=== PATIENT | female | born 1945 ===

== ENCOUNTER → 2016-08-02 | Outpatient (CLI) | payer MEDICARE, OTHER | END | disposition disaster alternative care site (69) | LOC: GRAD 13:40 | DX: R10.12 Left upper quadrant pain (principal); K76.0 Fatty (change of) liver, not elsewhere classified; K57.30 Diverticulosis of large intestine without perforation or abscess without bleeding; J84.10 Pulmonary fibrosis, unspecified; I70.90 Unspecified atherosclerosis | CPT/HCPCS: Q9967 ==

== ENCOUNTER → 2016-09-06 | Outpatient (CLI) | payer MEDICARE, OTHER | LOC: LFPA 16:38 | DX: R07.89 Other chest pain (principal) ==

== ENCOUNTER 2016-09-21 01:09 | Emergency (ER) | payer MEDICARE, OTHER ==
--- NOTE | ~2016-09-21 | ER ---
[facility] A[facility] 71 [facility] [address] ROOM: [place] [address] LOCATION: [facility] ADMIT DATE: 09/21/2016 ER/Outpatient Report DISCHARGE DATE: 09/21/2016 FAMILY PHYSICIAN: Andie Alanis MD ATTENDING PHYSICIAN: Tad Quintana Time of Arrival: 0111 hours. Time of Evaluation: 0111 hours. CHIEF COMPLAINT: Abdominal pain. HISTORY OF PRESENT ILLNESS: The patient is a 71-year-old female who presents to the emergency department today with a chief complaint of abdominal pain. She points to her left flank. She reports that it started this evening few hours. She denies any fevers or chills. She does have a long history of urinary tract infection. She denies any nausea or vomiting. No diarrhea or constipation. It is a sharp-type pain that radiates into her left lower quadrant. PAST MEDICAL HISTORY: Insulin-dependent diabetes, hypertension, coronary artery disease, dyslipidemia, gastroesophageal reflux disease, exogenous obesity, and diverticulosis. PAST SURGICAL HISTORY: Right total knee, bilateral knee arthroscopy, cholecystectomy, appendectomy, hysterectomy, and cardiac cath. SOCIAL HISTORY: The patient denies any tobacco, alcohol, or illicit drug use. ALLERGIES: TO PENICILLIN, ERYTHROMYCIN, MACROLIDES AND KETOLIDES. MEDICATIONS: Please see list. REVIEW OF SYSTEMS: All systems are reviewed by myself and are negative with the exception of those discussed in the HPI and past medical history. PHYSICAL EXAMINATION: VITAL SIGNS: Weight 93.5 kg. Blood pressure 182/86, pulse 87, respiratory rate 18, temperature 98.3, and oxygen saturation 94% on room air. PAT[facility]'S [facility]: [facility] AGE: 71 Y [address] ROOM: [place] [address] LOCATION: ED ADMIT DATE: 09/21/2016 ER/Outpatient Report DISCHARGE DATE: 09/21/2016 FAMILY PHYSICIAN: Andie Alanis MD ATTENDING PHYSICIAN: Tad Quintana GENERAL: The patient is a 71-year-old female, who appears at stated age, in mild acute distress. HEENT: Head: Normocephalic, atraumatic. Mucous membranes moist. NECK: Supple. There is no nuchal rigidity. CARDIOVASCULAR: Regular rate and rhythm. No murmurs, rubs, or gallops. LUNGS: Clear to auscultation bilaterally. No wheezes, rales, or rhonchi. ABDOMEN: Soft, nontender, nondistended. No rebound, rigidity, or guarding. Does have left CVA tenderness to palpation. SKIN: Warm and dry. LABORATORY DATA AND X-RAYS: Obtained. CBC: White blood cell count 17.3, otherwise normal. Lactate is normal. Coags are normal. Urinalysis shows 500 leukocyte esterase, 30 protein, 5 ketones, 10 to 20 wbc's, negative rbc's, 2 to 5 epithelials, few bacteria. CMP is unremarkable except for a creatinine of 1.3. GFR is 40. LFTs are normal. Lipase is normal. Procalcitonin is less than 0.05. Chest x- ray is normal. CT scan of the abdomen and pelvis without IV contrast was obtained and [facility] has reviewed this. The report as reviewed by myself does show mild fatty infiltration of the liver. There is a moderate amount of stool. There is some nonspecific interstitial thickening in the lungs. No renal stones. No hydronephrosis. IMPRESSION: 1. Acute left flank pain, unclear etiology. 2. Acute urinary tract infection, suspect kidney. 3. Nonspecific interstitial thickening in the lower lungs. 4. Initial visit. EMERGENCY DEPARTMENT COURSE: The patient is brought back to the examination room. Seen and evaluated by myself. An IV is established. The patient is given 0.5 mg of Dilaudid IV as well as 4 mg of Zofran IV. Laboratory analysis and imaging are obtained as described above. Her pain has significantly improved after the pain medicine. Her repeat abdominal exam, continues to have a nonsurgical abdominal exam at this time. The patient does have evidence of UTI on her urinalysis. She does have a long history of infections with E. coli, which have been sensitive to cephalosporins in the past. I have discussed the results with the patient and her on the bedside. I have written a prescription for Keflex for home as well as [place] for pain with sedation warning. I have discussed following up with Dr. Alanis in 1 to 2 days for re-evaluation. I have discussed following up with Dr. Angel, urologist; she is to call for an appointment. I have discussed [id number] instructions including worsening of symptoms or any other concerns to return to the emergency department as soon as possible. The patient is agreeable, her is agreeable. They are without further questions at this time. PATIENT'S NAME: DAVID CLAY [facility] AGE: 71 Y [address] ROOM: [place] [address] LOCATION: [facility] ADMIT DATE: 09/21/2016 ER/Outpatient Report DISCHARGE DATE: 09/21/2016 FAMILY PHYSICIAN: Andie Alanis MD ATTENDING PHYSICIAN: Tad Quintana DISPOSITION: The patient is discharged to home in good condition. TAD QUINTANA DO KJR/modl /[id number] d: 09/21/16 0452 t: 09/21/16 0532, OUTPATIENT REPORT
[2016-09-21 01:41] LABS: BASOPHIL # 0.1 K/uL (0.0-0.2); BASOPHIL % 0.5 %; EOSINOPHIL # 0.4 K/uL (0.0-0.5); EOSINOPHIL % 2.2 %; HEMATOCRIT 37.4 % (33.0-46.0); HEMOGLOBIN 12.3 g/dL (10.0-15.0); IMMATURE GRANULOCYTE # 0.1 K/uL (0.0-0.3); IMMATURE GRANULOCYTE % 0.7 %; LYMPHOCYTE # 4.1 K/uL (0.8-4.0); LYMPHOCYTE % 23.4 %; MCH 27.8 pg (27.0-34.0); MCHC 32.9 gm/dL (32.0-36.5); MCV 84.4 fl (83.0-98.0); MONOCYTE # 1.3 K/uL (0.0-1.0); MONOCYTE % 7.3 %; MPV 9.9 fl (9.4-12.4); NEUTROPHIL # (ANC) 11.4 K/uL (1.8-7.8); NEUTROPHIL % 65.9 %; NRBC % 0 /100WBC (0-0.00); PLATELET COUNT 258 K/uL (150-450); RBC 4.43 M/uL (3.50-5.50); RDW-CV 13.5 % (11.9-14.6)
[2016-09-21 01:42] LABS: WBC 17.3 K/uL (4.0-11.0)
[2016-09-21 01:52] LABS: INR - (THERAPEUTIC) 0.91 (0.92-1.07); PROTIME 9.5 SECONDS (9.8-11.4); PTT 28 SECONDS (25-32)
[2016-09-21 02:02] LABS: ALBUMIN 3.6 gm/dL (3.5-5.0); ANION GAP 12.5 (10.0-19.0); CALCIUM 8.9 mg/dL (8.5-10.5); CREATININE 1.3 mg/dL (0.5-1.1); POTASSIUM 4.5 mMol/L (3.7-5.1); TOTAL BILIRUBIN 0.3 mg/dL (0.0-1.5)
[2016-09-21 02:34] LABS: BILIRUBIN URINE NEGATIVE (NEGATIVE); BLOOD URINE NEGATIVE /UL (NEGATIVE); COLOR URINE YELLOW (YELLOW); GLUCOSE URINE NEGATIVE (NEGATIVE); KETONE URINE 5 mg/dL (NEGATIVE); LEUKOCYTES URINE 500 /UL (NEGATIVE); NITRITE URINE NEGATIVE (NEGATIVE); PROTEIN URINE 30 mg/dL (NEGATIVE); TURBIDITY URINE CLEAR (CLEAR); UROBILINOGEN URINE NORMAL (NORMAL)
[2016-09-21 02:42] LABS: BACTERIA URINE FEW (NEGATIVE); RBC URINE NEGATIVE #/HPF (NEGATIVE)
== END 2016-09-21 03:16 | disposition disaster alternative care site (69) ==
LOC: GMED 01:09
PROVIDERS: Emergency Medicine
DX: N39.0 Urinary tract infection, site not specified (principal); J98.4 Other disorders of lung; K21.9 Gastro-esophageal reflux disease without esophagitis; I10 Essential (primary) hypertension; E11.9 Type 2 diabetes mellitus without complications; E78.5 Hyperlipidemia, unspecified; E66.9 Obesity, unspecified; Z88.0 Allergy status to penicillin; Z88.1 Allergy status to other antibiotic agents; Z90.49 Acquired absence of other specified parts of digestive tract; Z90.710 Acquired absence of both cervix and uterus; Z79.84 Long term (current) use of oral hypoglycemic drugs; Z79.899 Other long term (current) drug therapy
CPT/HCPCS: J1170; J2270; J2405